=== PATIENT | female | born 1930 | race Caucasian/White ===

== ENCOUNTER → 2019-04-13 | Outpatient (CLI) | payer OTHER, MEDICARE | LOC: MRI 12:32 | DX: M47.26 Other spondylosis with radiculopathy, lumbar region (principal); M48.061 Spinal stenosis, lumbar region without neurogenic claudication ==

== ENCOUNTER → 2019-07-08 | Outpatient (CLI) | payer OTHER, MEDICARE | LOC: RAD 12:13 | DX: M47.816 Spondylosis without myelopathy or radiculopathy, lumbar region (principal); M48.061 Spinal stenosis, lumbar region without neurogenic claudication; M25.78 Osteophyte, vertebrae; I70.0 Atherosclerosis of aorta ==